=== PATIENT | male | born 1995 | race Hispanic/Latino ===

== ENCOUNTER 2023-09-13 20:32 | Emergency (ER) | payer SELFPAY ==
[~2023-09-13] VITALS: Ht 167.6 cm; Wt 68.0 kg
[2023-09-13 20:59] VITALS: BP 147/99; PULSE 98; RESP 18; TEMP 98.1; O2SAT 98
[2023-09-13] MEDS: TORADOL IV STA (21:22)
[2023-09-13 21:24] LABS: BASOPHIL % 0.5 % (0.0-0.2); EOSINOPHIL % 0.5 % (0.0-5.0); HEMATOCRIT(ML) 44.6 % (37.0-53.0); HEMOGLOBIN 15.4 g/dL (13.9-16.3); LYMPHOCYTES # 2.99 10^3/uL1 (1.0-4.8); LYMPHOCYTES % 33.8 % (24.0-44.0); MEAN CORP HGB 29.7 pg (26-34); MEAN CORP HGB CONCENTRATION 34.5 g/dL (33-36.5); MEAN CORP VOLUME 86.1 fL (78-100); MONOCYTES # 0.6 10^3/uL (0.3-0.8); MONOCYTES % 6.4 % (5.0-12.0); NEUTROPHIL # 5.2 10^3/uL (1.8-7.7); NEUTROPHILS % 58.7 % (41.0-85.0); PLATELET COUNT 248 10^3/uL (150-400); RED BLOOD CELL 5.18 10^6/uL (4.50-5.90); RED CELL DISTRIBUTION WIDTH 12.3 % (11.5-14.5); WHITE BLOOD CELL 8.8 10^3/uL (4.5-11.0)
[2023-09-13] MEDS ORDERED: TORADOL ONE (21:25)
[2023-09-13 21:27] LABS: +ADD MANUAL DIFF(NO CHRG) NO
[2023-09-13 21:32] LABS: APPEARANCE,URINE TURBID; BILIRUBIN,URINE NEGATIVE (NEGATIVE); LEUKOCYTE ESTERASE ,URINE NEGATIVE (NEGATIVE); NITRATE,URINE NEGATIVE (NEGATIVE); UA COLOR YELLOW; UROBILINOGEN,URINE 0.2 E.U./dL (0.2)
[2023-09-13 21:36] LABS: ALBUMIN(ML) 4.5 g/dL (3.4-5.0); ALBUMIN/GLOBULIN RATIO 1.125; ANION GAP 14.3; BUN/CREATININE RATIO 10.24 (10.0-20.0); CALCIUM 9.4 mg/dL (8.4-10.5); CARBON DIOXIDE 27.2 mmol/L (20.0-32); CREATININE SERUM 1.66 mg/dL (0.59-1.40); EST GFR, NON-AA 49.9 (>/=60); POTASSIUM 3.5 mmol/L (3.6-5.2)
[2023-09-13 21:59] VITALS: BP 143/83; PULSE 96; RESP 18; TEMP 98.1; O2SAT 98
[2023-09-13 22:59] VITALS: BP 152/96; PULSE 96; RESP 18; TEMP 98.1; O2SAT 99
[2023-09-13] MEDS: NS 1000ML 1,000 ML IV STA (23:07)
[2023-09-13 23:31] VITALS: BP 136/82; PULSE 98; RESP 18; TEMP 98.1; O2SAT 98
== END 2023-09-13 23:33 | disposition home or self-care (01) ==
LOC: ER 20:32
DX: R10.32 Left lower quadrant pain (principal); R10.31 Right lower quadrant pain; M54.50 Low back pain, unspecified; E86.0 Dehydration
CPT/HCPCS: 99285; 74176; 96374; 81003; 80053; 85025; 36415; J1885

== ENCOUNTER 2023-09-19 17:36 | Emergency (ER) | payer SELFPAY ==
[~2023-09-19] VITALS: Ht 167.6 cm; Wt 67.1 kg
[2023-09-19 17:36] VITALS: BP 140/93; PULSE 66; RESP 16; TEMP 98.5; O2SAT 98
[2023-09-19 18:30] VITALS: BP 124/66; PULSE 61; RESP 16; TEMP 98.5; O2SAT 98
[2023-09-19] MEDS: VIBRAMYCIN PO STA (18:58)
[2023-09-19] MEDS ORDERED: ZOFRAN ODT ONE (18:58)
[2023-09-19] MEDS ORDERED: VIBRAMYCIN ONE (18:58)
[2023-09-19] MEDS: ZOFRAN ODT SL STA (18:59)
[2023-09-19 19:03] VITALS: BP 126/71; PULSE 62; RESP 16; TEMP 98.5; O2SAT 98
== END 2023-09-19 19:03 | disposition home or self-care (01) ==
LOC: ER 17:36
DX: N48.1 Balanitis (principal); N34.2 Other urethritis
CPT/HCPCS: 99283